=== PATIENT | female | born 1945 | race Caucasian/White ===

== ENCOUNTER → 2024-02-29 11:18 | Outpatient (REF) | payer MEDICARE, SELFPAY ==
[2024-02-29 11:55] LABS: % Basophils 0.9 % (0-2); % Eosinophils 1.7 % (0-6); % Immature Granulocytes 0.2 % (0-0.5); % Lymphocytes 21.8 % (20.5-51.1); % Monocytes 13.5 % (1.7-9.3); % Neutrophils 61.9 % (42.2-75.2); Absolute Eosinophils 0.1 10^3/uL (0-0.7); Absolute Monocytes 0.6 10^3/uL (0.1-0.6); Absolute Neutrophils 2.8 10^3/uL (1.4-6.5); Hematocrit 33.1 % (37.0-47.0); Hemoglobin 9.9 g/dL (12.0-16.0); Mean Corp Hgb Conc. 29.9 g/dL (33.0-37.0); Mean Corpuscular Hgb 28.5 pg (27.0-31.0); Mean Corpuscular Volume 95.4 fL (81.0-99.0); Mean Platelet Volume 10.3 fL (7.4-10.4); Nucleated Red Blood Cells % 0 %; Platelet Count 212 10^3/uL (130-400); Red Blood Cell Count 3.47 10^6/uL (4.20-5.40); White Blood Cell Count 4.6 10^3/uL (4.8-10.8)
[2024-02-29 13:25] LABS: ALT (SGPT) 13 U/L (0-35); AST (SGOT) 27 U/L (14-36); Albumin 3.3 g/dl (3.5-5.0); Alkaline Phosphatase 68 U/L (38-126); Blood Urea Nitrogen 31 mg/dl (7-17); Carbon Dioxide 28 mmol/L (22-30); Chloride 102 mmol/L (98-107); Glucose 89 mg/dl (70-99); Potassium 4.3 mmol/L (3.5-5.1); Sodium 134 mmol/L (135-145); Total Bilirubin 0.4 mg/dl (0.2-1.3); Total Protein 6.6 g/dl (6.3-8.2)
[2024-02-29 13:29] LABS: Glycohemoglobin (HgbA1c) 5.7 % (4.0-5.6)
[2024-02-29 13:54] LABS: TSH 7.45 uIU/ml (0.47-4.68)
[2024-02-29 14:13] LABS: Vitamin B12 245 pg/ml (239-931)
[2024-03-03 15:00] LABS: Vitamin B6 Results 12.3 nmol/L (20.0-125.0)
== END ==
LOC: OLABN 11:18
PROVIDERS: ATTENDING PHYSICIAN Student in an Organized Health Care Education/Training Program
DX: E64.9 Sequelae of unspecified nutritional deficiency (principal); N18.9 Chronic kidney disease, unspecified; E03.9 Hypothyroidism, unspecified; E11.9 Type 2 diabetes mellitus without complications; E53.8 Deficiency of other specified B group vitamins; E53.1 Pyridoxine deficiency; D64.9 Anemia, unspecified
CPT/HCPCS: 36415; 80053; 82607; 83036; 83735; 84207; 84443; 85025

== ENCOUNTER 2024-03-30 16:54 | Emergency (ER) | payer MEDICARE, SELFPAY ==
[2024-03-30 16:57] VITALS: BP 121/71
[2024-03-30 17:16] VITALS: BMI 37.1
--- NOTE | 2024-03-30 17:37 | ED.GENMED ---
History of Present Illness
General
Chief Complaint: Fall
Time Seen by Provider: 03/30/24 17:37
Travel History
Have you had any contact with someone who has COVID-19?: No
Do you have any symptoms of coronavirus? Fever > 100 degrees, chills, cough, shortness of breath, sore throat, loss of taste or smell, muscle aches, or headache?: No
History of Present Illness
History of Present Illness:
HPI: Just prior to arrival while at [facility], the patient went to the bathroom and she was having diarrhea. She states that some of the diarrhea got on the seat and she slipped off the seat striking the right side of her head/ear. She has
no significant symptoms however she is on Coumadin so she was sent here for further evaluation by ambulance.
EXAM:
GENERAL: Well appearing in no distress
CERVICAL SPINE: No midline c-spine tenderness with excellent AROM
HEAD: No evidence of craniofacial trauma
CHEST: No chest wall tenderness, regular rhythm, 2 out of 6 systolic murmur in the right upper sternal border
LUNGS: Equal lung sounds, no respiratory distress
ABDOMEN: No abdominal tenderness, no peritoneal signs
EXTREMITIES: Normal active range of motion, chronic edema and erythema noted to both lower extremities related the patient's history of lymphedema�patient states there are no new concerns here
NEURO: Excellent strength all extremities, appropriate mental status, normal speech/language
TIME OF INITIAL ENCOUNTER: 5:45 PM
NUMBER AND COMPLEXITY OF PROBLEMS ADDRESSED AT THE ENCOUNTER
� Chronic conditions affecting care: Asthma, atrial fibrillation, hyperlipidemia, hypothyroidism, lymphedema
� Acute Exacerbation and/or Progression of Chronic Illness: This is an acute problem
� Differential Diagnosis includes: Intracranial hemorrhage, minor head injury, scalp/face contusion
AMOUNT AND/OR COMPLEXITY OF DATA TO BE REVIEWED AND ANALYZED
� I performed an independent evaluation of and my interpretation is:
EKG:
CT: CT imaging of brain shows no bleeding
X-rays:
Laboratory Studies:
Other:
� Review of other/old records: I reviewed records from [facility] indicates an INR of 1.9 from yesterday
� Clinical information was obtained by an independent historian:
� Prescriptions/Medications Considered but not given:
� Further testing considered but not performed: Considered labs however INR was just checked yesterday
RISK OF COMPLICATIONS AND/OR MORBIDITY OR MORTALITY OF PATIENT MANAGEMENT
� Social determinants of health affecting care: Lives at [facility]
� Discussion with other providers:
� Escalation of care including admission/observation vs risk of discharge considered: Given patient's age and being on Coumadin with head injury will obtain CT imaging. INR yesterday was 1.9. CT imaging unremarkable. I
reassessed patient at 8:30 PM and there is been no change in her clinical condition. She has appropriate mental status at time of discharge.
Phy Exam
Physical Exam
Physical Exam:
See HPI
Course
Orders/Labs/Results
Orders:
Orders
03/30/24 17:49
CT Head W/o Iv Contrast Urgent
Comment:
Reason For Exam: fall head injury coumadin
Vital Signs
Initial and Last Documented VS:
Initial Vital Signs
Temp Pulse Resp Pulse Ox
98.2 F 63 18 95
03/30/24 16:57 03/30/24 16:57 03/30/24 16:57 03/30/24 16:57
Last Documented Vital Signs
Temp Pulse Resp Pulse Ox
98.2 F 63 18 95
03/30/24 16:57 03/30/24 16:57 03/30/24 16:57 03/30/24 16:57
*Critical Care Note
Total Time (30-74mins, 75-104mins- exclusive of procedures): Not Applicable
ED Attending Note
-
Portions of this chart may have been created with voice recognition software.� Occasional wrong word or��sound alike� substitutions may have occurred due to the inherent limitations of voice recognition software.
Discharge Plan
Departure
Patient Disposition: Home (Routine Discharge)
Date of Disposition: 03/30/24
Time of Disposition: 20:36
Patient with high blood pressure during this ER visit?: Yes
Discharge Problem:
Head injury
Instructions: BLOOD PRESSURE
Prescriptions:
No Action
diltiazem HCl 300 mg Capsule,Extended Release 24 Hr
300 mg PO DAILY
warfarin 6 mg Tablet
6 mg PO DAILY
potassium chloride 20 mEq Tablet,Er Particles/Crystals
10 meq PO DAILY
levothyroxine 125 mcg Tablet
125 mcg PO DAILY
furosemide 20 mg Tablet
20 mg PO DAILY
pyridoxine (vitamin B6) [Vitamin B-6] 100 mg Tablet
100 mg PO DAILY
albuterol sulfate 90 mcg/actuation Hfa Aerosol Inhaler
2 puff INHALATION QID PRN (Reason: sob)
losartan 100 mg Tablet
100 mg PO DAILY
cholecalciferol (vitamin D3) 50 mcg (2,000 unit) Tablet
50 mcg PO DAILY
Referrals:
Gabino Perea DO [Family Provider] -
Activity Restrictions/Additional Instructions:
CAT scan of your brain shows no bleeding. Return here if worse.
Interventions
Interventions:
*Risk Screen - Suicide Last Done: 03/30/24 17:09
*Neglect/Abuse Screening Last Done: 03/30/24 17:09
ED- Fall Risk Assessment Last Done: 03/30/24 17:09
ED-Musculoskeletal Assessment Last Done: 03/30/24 17:14
ED- Neurological Assessment Last Done: 03/30/24 17:18
ED-Skin Assessment Last Done: 03/30/24 17:18
Discharge Date and Time
Print Language: KOREAN
[2024-03-30 20:40] VITALS: BP 122/73
[2024-03-30 23:35] VITALS: BP 131/56
== END 2024-03-30 23:36 | disposition home or self-care (01) ==
LOC: EMR 16:54
PROVIDERS: EMERGENCY PHYSICIAN Emergency Medicine; FAMILY PHYSICIAN Student in an Organized Health Care Education/Training Program
DX: S09.90XA Unspecified injury of head, initial encounter (principal); R19.7 Diarrhea, unspecified; W18.12XA Fall from or off toilet with subsequent striking against object, initial encounter; Y92.121 Bathroom in nursing home as the place of occurrence of the external cause; I48.91 Unspecified atrial fibrillation; E03.9 Hypothyroidism, unspecified; J45.909 Unspecified asthma, uncomplicated; E78.5 Hyperlipidemia, unspecified; I89.0 Lymphedema, not elsewhere classified
CPT/HCPCS: 99284; 70450

== ENCOUNTER → 2024-05-27 09:28 | Outpatient (REF) | payer MEDICARE, SELFPAY ==
[2024-05-27 10:10] LABS: Free T4 1.36 ng/dl (0.78-2.19)
[2024-05-27 10:23] LABS: TSH 2.68 uIU/ml (0.47-4.68)
== END ==
LOC: OLABN 09:28
PROVIDERS: ATTENDING PHYSICIAN Student in an Organized Health Care Education/Training Program
DX: E03.9 Hypothyroidism, unspecified (principal)
CPT/HCPCS: 36415; 84439; 84443

== ENCOUNTER → 2024-10-17 10:10 | Outpatient (REF) | payer MEDICARE, SELFPAY ==
[2024-10-17 10:55] LABS: Urine Albumin 3+ (Neg - Trace); Urine Bilirubin Negative (Negative); Urine Character Clear (Clear); Urine Color Yellow; Urine Glucose Negative (Negative); Urine Ketone Negative (Negative); Urine Leukocyte Negative (Negative); Urine Nitrite Negative (Negative); Urine Occult Blood Negative (Negative); Urine Urobilinogen Negative (Neg - 1+)
[2024-10-17 12:21] LABS: Urine Amorphous Seen; Urine Hyaline Cast 0-2 /LPF (0-2); Urine Red Blood Cell 0-2 /HPF (0-2); Urine Urothelial Cell 0-2 /LPF (FEW); Urine White Cell 0-2 /HPF (0-5)
== END ==
LOC: OLABN 10:10
PROVIDERS: ATTENDING PHYSICIAN Student in an Organized Health Care Education/Training Program
DX: R10.9 Unspecified abdominal pain (principal); R30.0 Dysuria
CPT/HCPCS: 36415; 81003; 81015; 87086

== ENCOUNTER → 2024-10-18 06:46 | Outpatient (REF) | payer MEDICARE, SELFPAY ==
[2024-10-18 07:51] LABS: % Basophils 0.8 % (0-2); % Eosinophils 0.4 % (0-6); % Immature Granulocytes 0.4 % (0-0.5); % Lymphocytes 19.6 % (20.5-51.1); % Monocytes 9.9 % (1.7-9.3); % Neutrophils 68.9 % (42.2-75.2); Absolute Monocytes 0.5 10^3/uL (0.1-0.6); Absolute Neutrophils 3.4 10^3/uL (1.4-6.5); Hematocrit 34.3 % (37.0-47.0); Hemoglobin 11.5 g/dL (12.0-16.0); Mean Corp Hgb Conc. 33.5 g/dL (33.0-37.0); Mean Corpuscular Hgb 29.9 pg (27.0-31.0); Mean Corpuscular Volume 89.1 fL (81.0-99.0); Mean Platelet Volume 9.8 fL (7.4-10.4); Nucleated Red Blood Cells % 0 %; Platelet Count 174 10^3/uL (130-400); Red Blood Cell Count 3.85 10^6/uL (4.20-5.40); Red Cell Dist. Width 12.3 % (11.5-14.5)
[2024-10-18 07:53] LABS: ALT (SGPT) 18 U/L (0-35); AST (SGOT) 35 U/L (14-36); Alkaline Phosphatase 60 U/L (38-126); Blood Urea Nitrogen 24 mg/dl (7-17); Calcium 8.9 mg/dl (8.4-10.2); Carbon Dioxide 29 mmol/L (22-30); Chloride 90 mmol/L (98-107); GGTP 16 U/L (12-43); Glucose 96 mg/dl (70-99); Potassium 4.4 mmol/L (3.5-5.1); Sodium 129 mmol/L (135-145); Total Bilirubin 0.5 mg/dl (0.2-1.3); Total Protein 7.2 g/dl (6.3-8.2); eGFR > 60.00
== END ==
LOC: OLABN 06:46
PROVIDERS: ATTENDING PHYSICIAN Student in an Organized Health Care Education/Training Program
DX: B06.0 Rubella with neurological complications (principal); Z79.899 Other long term (current) drug therapy
CPT/HCPCS: 36415; 80053; 82977; 85025

== ENCOUNTER → 2024-10-21 10:21 | Outpatient (REF) | payer MEDICARE, SELFPAY ==
[2024-10-21 10:57] LABS: Blood Urea Nitrogen 39 mg/dl (7-17); Calcium 8.6 mg/dl (8.4-10.2); Carbon Dioxide 29 mmol/L (22-30); Chloride 94 mmol/L (98-107); Glucose 89 mg/dl (70-99); Potassium 4.3 mmol/L (3.5-5.1); Sodium 131 mmol/L (135-145)
== END ==
LOC: OLABN 10:21
PROVIDERS: ATTENDING PHYSICIAN Student in an Organized Health Care Education/Training Program
DX: E87.1 Hypo-osmolality and hyponatremia (principal)
CPT/HCPCS: 36415; 80048

== ENCOUNTER → 2024-10-23 03:00 | Outpatient (REF) | payer MEDICARE, SELFPAY ==
[2024-10-23 13:53] LABS: Urine Albumin Negative (Neg - Trace); Urine Bilirubin Negative (Negative); Urine Character Clear (Clear); Urine Color Yellow; Urine Glucose Negative (Negative); Urine Ketone Negative (Negative); Urine Leukocyte Negative (Negative); Urine Nitrite Negative (Negative); Urine Occult Blood Negative (Negative); Urine Urobilinogen Negative (Neg - 1+)
== END ==
LOC: OLABN 03:00
PROVIDERS: ATTENDING PHYSICIAN Student in an Organized Health Care Education/Training Program
DX: R33.9 Retention of urine, unspecified (principal)
CPT/HCPCS: 81003; 87086

== ENCOUNTER → 2025-03-04 11:30 | Outpatient (REF) | payer MEDICARE, SELFPAY ==
[2025-03-04 12:04] LABS: Hematocrit 30.1 % (37.0-47.0); Hemoglobin 9.8 g/dL (12.0-16.0); Mean Corp Hgb Conc. 32.6 g/dL (33.0-37.0); Mean Corpuscular Hgb 31.3 pg (27.0-31.0); Mean Corpuscular Volume 96.2 fL (81.0-99.0); Mean Platelet Volume 10.3 fL (7.4-10.4); Platelet Count 167 10^3/uL (130-400); Red Blood Cell Count 3.13 10^6/uL (4.20-5.40); Red Cell Dist. Width 13.3 % (11.5-14.5); White Blood Cell Count 3.6 10^3/uL (4.8-10.8)
[2025-03-04 12:25] LABS: Blood Urea Nitrogen 29 mg/dl (7-17); Calcium 9.2 mg/dl (8.4-10.2); Carbon Dioxide 30 mmol/L (22-30); Chloride 104 mmol/L (98-107); Glucose 78 mg/dl (70-99); HDL Cholesterol 58 mg/dl; LDL Cholesterol, Calculated 99 mg/dl; Potassium 4.5 mmol/L (3.5-5.1); Sodium 138 mmol/L (135-145); Total Cholesterol 167 mg/dl (50-199); Triglyceride 54 mg/dl (10-149); Very Low Density Lipoprotein 10 mg/dl (0-30); eGFR 50.17
[2025-03-04 12:44] LABS: Vitamin D, 25-OH*** 53.1 ng/mL (30-80)
[2025-03-04 12:57] LABS: TSH 2.21 uIU/ml (0.47-4.68)
== END ==
LOC: OLABN 11:30
PROVIDERS: ATTENDING PHYSICIAN Student in an Organized Health Care Education/Training Program
DX: D64.9 Anemia, unspecified (principal); E87.1 Hypo-osmolality and hyponatremia; E03.9 Hypothyroidism, unspecified; E55.9 Vitamin D deficiency, unspecified; E78.5 Hyperlipidemia, unspecified
CPT/HCPCS: 36415; 80048; 80061; 82306; 84443; 85027

== ENCOUNTER → 2025-04-14 08:52 | Outpatient (REF) | payer MEDICARE, SELFPAY ==
[2025-04-15 11:21] LABS: Urine Albumin 2+ (Neg - Trace); Urine Bilirubin Negative (Negative); Urine Character Clear (Clear); Urine Color Yellow; Urine Glucose Negative (Negative); Urine Ketone Negative (Negative); Urine Leukocyte 1+ (Negative); Urine Nitrite Negative (Negative); Urine Occult Blood 3+ (Negative); Urine Urobilinogen Negative (Neg - 1+)
[2025-04-15 11:56] LABS: Urine Squamous Cell 16-20 /LPF (Few)
[2025-04-15 11:57] LABS: Urine Bacteria Few (Negative); Urine White Cell >100 /HPF (0-5)
== END ==
LOC: OLABN 08:52
PROVIDERS: ATTENDING PHYSICIAN Student in an Organized Health Care Education/Training Program
DX: R30.9 Painful micturition, unspecified (principal)
CPT/HCPCS: 81003; 81015; 87086